=== PATIENT | male | born 1950 | race Caucasian/White ===

== ENCOUNTER 2019-09-09 06:43 | Outpatient (CLI) | payer OTHER, SELFPAY ==
[2019-09-09 07:33] LABS: Basophils Absolute Auto 0.1 K/mm3 (0.0-0.1); Basophils Percent Auto 1.3 % (0.2-1.2); Eosinophils Absolute Auto 0.2 K/mm3 (0-0.3); Eosinophils Percent Auto 2.8 % (0-4.4); Hematocrit 43.6 % (42.0-52.0); Hemoglobin 14.2 g/dL (14.0-18.0); Immature Granulocyte Absolute 0.03 K/mm3 (0.00-0.031); Immature Granulocyte Percent A 0.4 % (0-0.5); Lymphocytes Absolute Auto 0.68 K/mm3 (0.9-3.2); Mean Corpuscular HGB Conc 32.6 g/dl (32-36); Mean Corpuscular Hemoglobin 32.1 pg (26-34); Mean Corpuscular Volume 98.4 fl (80-100); Monocytes Absolute Auto 0.7 K/mm3 (0.1-0.6); Monocytes Percent Auto 10.3 % (2.6-8.5); Neutrophils Absolute Auto 5.1 K/mm3 (1.3-6.7); Neutrophils Percent Auto 75.2 % (45.5-73.1); Platelet Count Result 371 k/mm3 (150-375); Red Blood Count 4.43 M/mm3 (4.6-6.20); Red Cell Distribution Width 14.7 % (11.5-14.5); White Blood Count 6.8 K/mm3 (4.5-10.0)
[2019-09-09 08:27] LABS: Alanine Aminotransferase 41 U/L (4-50); Albumin Level 3.9 g/dL (3.5-5.1); Alkaline Phosphatase 385 U/L (38-126); Aspartate Amino Transferase 58 U/L (17-59); Bilirubin,Total 1.1 mg/dL (0.2-1.3); Blood Urea Nitrogen 20 mg/dL (9-20); Carbon Dioxide 25 mmol/L (22-30); Chloride 104 mmol/L (98-107); Cholesterol 126 mg/dL (0-200); Estimated Glomerular Filt Rate > 60; Glucose 121 mg/dL (75-110); HDL Direct 53 mg/dL; Potassium 4.5 mmol/L (3.4-5.0); Sodium 140 mmol/L (137-145); Triglycerides 63 mg/dL (<150)
[2019-09-09 08:27] LABS: Creatinine Urine 166.5 mg/dL
[2019-09-09 08:31] LABS: MALB Creatinine Ratio 22.2 mg/g (0-30)
[2019-09-09 08:49] LABS: LDL Cholesterol Direct 50 mg/dL
[2019-09-09 09:04] LABS: Prostate Specific Antigen 0.7 ng/mL (< OR = 4.0)
[2019-09-09 15:11] LABS: Hemoglobin A1C 5.5 % (<5.7)
== END 2019-09-09 06:44 | disposition home or self-care (01) ==
PROVIDERS: PCP Internal Medicine; Visit Provider Internal Medicine
DX: Z12.5 Encounter for screening for malignant neoplasm of prostate (principal); E11.22 Type 2 diabetes mellitus with diabetic chronic kidney disease; I10 Essential (primary) hypertension
CPT/HCPCS: 36415; 80053; 80061; 82043; 83036; 84153; 84443; 85025; G0103

== ENCOUNTER 2019-09-17 08:52 | Outpatient (CLI) | payer OTHER, SELFPAY ==
--- NOTE | ~2019-09-17 | XR_ITS ---
EXAMINATION: XR chest 2V EXAM DATE: 09/17/2019 09:15 INDICATION: Wheezing and shortness of breath. TECHNIQUE: Frontal and lateral projections of the chest obtained and reviewed. Comparison is made to prior examination from 09/04/2018. FINDINGS: Mild cardiomegaly and pulmonary vascular congestion. There is indistinct reticulation than on prior study, could indicate mild pulmonary edema. Appearance is suspicious for mild CHF exacerbat ion. Again there is small to moderate right-sided pleural effusion, possibly with loculations, and ad jacent airspace disease not significantly changed, likely atelectasis. There is no pneumothorax suspe cted. There are mild bony degenerative changes. IMPRESSION: 1. Chronic small to moderate right pleural effusion, adjacent airspace disease probably atelectasis. 2. Possible mild CHF exacerbation? Reviewed, dictated and finalized at location B.
== END 2019-09-17 08:53 | disposition home or self-care (01) ==
PROVIDERS: PCP Internal Medicine; Visit Provider Internal Medicine
DX: J90 Pleural effusion, not elsewhere classified (principal); R06.02 Shortness of breath; R06.2 Wheezing
CPT/HCPCS: 71046

== ENCOUNTER 2019-09-22 06:35 | Outpatient (CLI) | payer OTHER, SELFPAY ==
--- NOTE | ~2019-09-22 | XR_ITS ---
XR chest 2V DATE: 09/22/2019 07:29 INDICATION: Heart failure. Recent wheezing, shortness of breath. TECHNIQUE: PA and lateral views COMPARISON: 09/17/2019 2 view chest FINDINGS: There is right lower lung infiltrate and/atelectasis and mild right pleural effusion. There is little interval change since 09/17/2019. Minimal atelectasis is suggested in the left lower lung z one. IMPRESSION: No significant change since 09/17/2019 Reviewed, dictated and finalized at location A.
[2019-09-22 08:04] LABS: Blood Urea Nitrogen 20 mg/dL (9-20); Carbon Dioxide 29 mmol/L (22-30); Chloride 103 mmol/L (98-107); Estimated Glomerular Filt Rate 60; Glucose 109 mg/dL (75-110); Potassium 4.2 mmol/L (3.4-5.0); Sodium 136 mmol/L (137-145)
== END 2019-09-22 06:36 | disposition home or self-care (01) ==
PROVIDERS: PCP Internal Medicine; Visit Provider Internal Medicine
DX: I50.9 Heart failure, unspecified (principal)
CPT/HCPCS: 36415; 71046; 80048

== ENCOUNTER 2019-11-07 08:20 | Outpatient (CLI) | payer OTHER, SELFPAY ==
--- NOTE | ~2019-11-07 | CT_ITS ---
EXAMINATION: CT lung screening DATE: 11/07/2019 08:57 INDICATION: Personal history of tobacco dependence. TECHNIQUE: Computed tomography (CT) of the chest was performed without intravenous contrast. The dose -length product was 302.13 mGy-cm. Automated exposure control and iterative reconstruction technique were employed. COMPARISON: CT dated 08/23/2018 FINDINGS: Stable chronic small right pleural effusion stable chronic masses right middle and lower lo bes consistent with rounded atelectasis. Cardiomegaly. Calcified left hilar lymph nodes and left lung nodules consistent with chronic granulomatous disease. Stable 7 mm left lower lobe nodule just above the diaphragm. There is cirrhosis of the liver. Large amount of ascites in the upper abdomen. There is emphysema. IMPRESSION: 1. Lung-RADS category 2: Benign appearance or behavior. Continue annual screening with noncontrast lo w-dose chest CT in 12 months. 2: Stable chronic right pleural effusion with rounded atelectasis right middle and lower lobe. 3: Cirrhosis with large amount of ascites in the upper abdomen. Reviewed, dictated and finalized at location A. IMPRESSION: 1. Lung-RADS category 2: Benign appearance or behavior. Continue annual screeni ng with noncontrast low-dose chest CT in 12 months. 2: Stable chronic right pleural effusion with rounded atelectasis right middle and lower lobe. 3: Cirrhosis with large amount of ascites in the upper abdomen.
== END 2019-11-07 08:21 | disposition home or self-care (01) ==
LOC: ANHIMG 08:25
PROVIDERS: PCP Internal Medicine; Visit Provider Nurse Practitioner Family
DX: Z12.2 Encounter for screening for malignant neoplasm of respiratory organs (principal); J90 Pleural effusion, not elsewhere classified; J98.11 Atelectasis; K74.60 Unspecified cirrhosis of liver; R18.8 Other ascites; Z87.891 Personal history of nicotine dependence
CPT/HCPCS: G0297

== ENCOUNTER 2019-11-20 06:47 | Outpatient (CLI) | payer OTHER, SELFPAY ==
[2019-11-20 07:29] LABS: Alanine Aminotransferase 28 U/L (4-50); Albumin Level 3.8 g/dL (3.5-5.1); Alkaline Phosphatase 287 U/L (38-126); Aspartate Amino Transferase 42 U/L (17-59); Bilirubin,Total 1.1 mg/dL (0.2-1.3); Blood Urea Nitrogen 34 mg/dL (9-20); Calcium 8.9 mg/dL (8.4-10.2); Carbon Dioxide 24 mmol/L (22-30); Chloride 107 mmol/L (98-107); Estimated Glomerular Filt Rate 47; Glucose 109 mg/dL (75-110); Potassium 4.8 mmol/L (3.4-5.0); Sodium 136 mmol/L (137-145)
== END 2019-11-20 06:48 | disposition home or self-care (01) ==
PROVIDERS: PCP Internal Medicine; Visit Provider Internal Medicine
DX: K70.31 Alcoholic cirrhosis of liver with ascites (principal); R74.8 Abnormal levels of other serum enzymes; E66.01 Morbid (severe) obesity due to excess calories; Z68.37 Body mass index [BMI] 37.0-37.9, adult
CPT/HCPCS: 36415; 80053; 86038

== ENCOUNTER 2019-12-11 06:37 | Outpatient (CLI) | payer OTHER, SELFPAY ==
[2019-12-11 07:38] LABS: Basophils Absolute Auto 0.1 K/mm3 (0.0-0.1); Basophils Percent Auto 1.3 % (0.2-1.2); Eosinophils Absolute Auto 0.3 K/mm3 (0-0.3); Eosinophils Percent Auto 3.7 % (0-4.4); Hematocrit 38.4 % (42.0-52.0); Hemoglobin 12.5 g/dL (14.0-18.0); Immature Granulocyte Absolute 0.03 K/mm3 (0.00-0.031); Immature Granulocyte Percent A 0.4 % (0-0.5); Lymphocytes Absolute Auto 0.61 K/mm3 (0.9-3.2); Lymphocytes Percent Auto 8.7 % (18.3-44.2); Mean Corpuscular HGB Conc 32.6 g/dl (32-36); Mean Corpuscular Hemoglobin 31.8 pg (26-34); Mean Corpuscular Volume 97.7 fl (80-100); Mean Platelet Volume 10.1 fl (7.4-10.4); Monocytes Absolute Auto 0.8 K/mm3 (0.1-0.6); Neutrophils Absolute Auto 5.2 K/mm3 (1.3-6.7); Neutrophils Percent Auto 74.9 % (45.5-73.1); Platelet Count Result 325 k/mm3 (150-375); Red Blood Count 3.93 M/mm3 (4.6-6.20); Red Cell Distribution Width 15.2 % (11.5-14.5)
[2019-12-11 07:52] LABS: Alanine Aminotransferase 27 U/L (4-50); Albumin Level 3.9 g/dL (3.5-5.1); Alkaline Phosphatase 300 U/L (38-126); Aspartate Amino Transferase 43 U/L (17-59); Bilirubin,Total 0.7 mg/dL (0.2-1.3); Blood Urea Nitrogen 40 mg/dL (9-20); Carbon Dioxide 22 mmol/L (22-30); Chloride 107 mmol/L (98-107); Estimated Glomerular Filt Rate 40; Glucose 112 mg/dL (75-110); Potassium 4.9 mmol/L (3.4-5.0); Sodium 136 mmol/L (137-145)
[2019-12-11 08:06] LABS: INR 1.1; Prothrombin Time 13.8 Seconds (11.1-14.7)
[2019-12-11 09:03] LABS: Hepatitis C Virus Antibody Negative (Negative)
[2019-12-14 10:44] LABS: Actin Antibody (IgG) 23 U (<20)
== END 2019-12-11 06:38 | disposition home or self-care (01) ==
PROVIDERS: PCP Internal Medicine
DX: R74.8 Abnormal levels of other serum enzymes (principal); E66.01 Morbid (severe) obesity due to excess calories; Z68.37 Body mass index [BMI] 37.0-37.9, adult; K70.31 Alcoholic cirrhosis of liver with ascites
CPT/HCPCS: 36415; 80053; 82103; 83516; 85025; 85610; 86038; 86803

== ENCOUNTER 2020-03-02 08:07 | Outpatient (CLI) | payer OTHER, SELFPAY ==
--- NOTE | 2020-03-02 08:09 | ECG_ITS ---
Measurements Intervals [place] Rate: 86 P: MS: 0 QRS: 53 QRSD: 151 T: 0 QT: 394 QTc: 473 Interpretive Statements ATRIAL FIBRILLATION RIGHT BUNDLE BRANCH BLOCK BASELINE ARTIFACT- I, II, III, AVR, AVL, AVF, V5-V6 ABNORMAL ECG Electronically Signed On 03-02-2020 13:22:46 CDT by Matt Griggs D.O.
[2020-03-02 08:56] LABS: Anion Gap 10 mmol/L (8-16); Blood Urea Nitrogen 22 mg/dL (9-20); Carbon Dioxide 27 mmol/L (22-30); Chloride 102 mmol/L (98-107); Estimated Glomerular Filt Rate 55; Glucose 145 mg/dL (75-110); Potassium 4.4 mmol/L (3.4-5.0); Sodium 139 mmol/L (137-145)
[2020-03-02 09:04] LABS: INR 1.3; Prothrombin Time 15.4 Seconds (11.1-14.7)
== END 2020-03-02 08:08 | disposition home or self-care (01) ==
LOC: ANHSURGERY 08:09
PROVIDERS: Anesthesiology; PCP Internal Medicine; Visit Provider Urology
DX: N43.40 Spermatocele of epididymis, unspecified (principal); E11.22 Type 2 diabetes mellitus with diabetic chronic kidney disease; K74.60 Unspecified cirrhosis of liver; I45.10 Unspecified right bundle-branch block; R94.31 Abnormal electrocardiogram [ECG] [EKG]
CPT/HCPCS: 36415; 80048; 85610; 85730; 87086; 87088; 93005

== ENCOUNTER 2020-03-08 01:10 | Outpatient (CLI) | payer OTHER, SELFPAY ==
[2020-03-08 16:16] LABS: SARS-CoV-2 RNA PCR Negative
== END 2020-03-08 01:11 | disposition home or self-care (01) ==
LOC: ANHCOVIDDT 01:10
PROVIDERS: PCP Internal Medicine; Visit Provider Urology
DX: Z01.812 Encounter for preprocedural laboratory examination (principal); Z20.828 Contact with and (suspected) exposure to other viral communicable diseases
CPT/HCPCS: 87635; C9803; U0003

== ENCOUNTER 2020-03-10 00:25 | Day surgery (SDC) | payer OTHER, SELFPAY ==
[2020-02-25 13:57] VITALS: BMI 39.2
[2020-03-10] VITALS (7 sets, daily range): BP systolic 121–148; BP diastolic 72–94; PULSE 66–91; RESP 14–26; TEMP 36.4–36.9; O2SAT 94–99
[2020-03-10] MEDS: LACTATED RINGERS 1,000 ML 30 ML IV CONT ×2 (10:07→13:34)
[2020-03-10] MEDS: ACETAMINOPHEN 500 MG TABLET 1000 MG PO (10:07)
--- NOTE | 2020-03-10 10:14 | WPDANESEPPF ---
Anes - Initial Pre Proc Eval Procedure: Operation Date: 03/10/20 12:00 Proposed Procedures p Bilateral Hydrocelectomy - Madhuri Ortiz MD s Left Spermatocelectomy - Madhuri Ortiz MD Date/Time: 03/10/20 10:14 Surgeon: Madhrui Ortiz MD Pre Op Diagnosis: Hydrocele and Spermatocele Patient Data Age: 70 Gender: M Height: 6 ft 2 in Weight: 138.6 kg Allergies Allergy/AdvReac Type Severity Reaction Status Date / Time No Known Allergies Allergy Verified 02/25/20 13:54 Home Medications Medication Instructions Recorded Confirmed Type lisinopril 20 mg tablet 10 mg PO DAILY #90 tablet 08/19/19 03/10/20 Rx furosemide 40 mg tablet 40 mg PO QAM #90 tablet 10/06/19 03/10/20 Rx apixaban 5 mg tablet 5 mg PO BID #60 tablet 12/08/19 03/10/20 Rx carvedilol 3.125 mg tablet 3.125 mg PO Q12H #60 tablet 02/02/20 03/10/20 Rx umeclidinium-vilanterol [Anoro 1 inhalation INHALATION DAILY PRN 02/25/20 03/10/20 History Ellipta] metformin 1,000 mg tablet 1,000 mg PO BID #180 tablet 03/01/20 03/10/20 Rx Patient hx anesthesia problems: none Family hx anesthesia problems: none PMFSH Past Medical History Medical History (Updated 03/10/20 @ 10:11 by Duke Lopez MD) Atrial fibrillation Chronic obstructive pulmonary disease Essential hypertension Hepatic cirrhosis TROY (obstructive sleep apnea) Type 2 diabetes mellitus with chronic kidney disease, without long-term current use of insulin Surgical History Surgical History History of hernia repair Social History Social History (Updated 09/22/19 @ 13:52 by Ashanti Bills CMA) Years smoked: 54 Smoking status: Current every day smoker Tobacco type: cigarettes Second hand tobacco smoke exposure: Yes Additional smoking assessment comments: STATES DOWN TO 1/2PK/DAY FROM 1 1/2PK/DAY Alcohol intake: current Alcohol use details: UNALBLE TO GIVEN DRINKS/WEEK - STATES MODERATE INTAKE Substance use: never Living arrangements: alone Spiritual care concerns: No Anes - Eval Final PreProcedure Day of Procedure 03/10/20 10:14 Patient weight: morbidly obese Heart: irregular rhythm Lungs: clear to auscultation Airway: Mallampati scale class II Neurological: alert and oriented Last oral intake: >/= 8 hours ASA classification: IV Emergent: no Anesthetic plan: proceed Anesthesia type and monitoring: general LMA and standard monitoring Informed Consent: The patient's anesthetic plan and its attendant risks and benefits were discussed with the patient/family/POA. Questions were solicited and answers provided to the satisfaction of the patient/family/POA.
[2020-03-10 10:16] LABS: Glucose Point of Care 107 (65-105)
[2020-03-10 10:44] LABS: INR 1.1; Prothrombin Time 13.7 Seconds (11.1-14.7)
[2020-03-10 10:45] LABS: Partial Thromboplastin Time 33.4 SECONDS (22.3-36.8)
--- NOTE | 2020-03-10 12:04 | WPDHPUPDATE1 ---
History and Physical Update Update Date/Time: 03/10/20 12:04 History and Physical has been reviewed, including an updated exam of the patient. There are NO changes in the patient's condition. Risks, benefits, and alternatives have been discussed and questions answered. Patient agrees to proceed with procedure.
[2020-03-10] MEDS: ceFAZolin 3 GM/D5W 100 ML 100 ML IVPB (12:09)
--- NOTE | 2020-03-10 13:33 | P.OP_ITS ---
Procedure Note - Detailed Date of procedure: 03/10/20 Pre-op diagnosis: Hydrocele and Spermatocele Procedure performed: bilateral hydrocelectomy and left spermatocelectomy Description of procedure: informed consent was obtained. Patient taken the operating. He is given preoperative IV antibiotics. His anesthesia. He was shaved his prepped draped normal sterile fashion in supine position. A 5cm midline scrotal raphe incision was made. We dissected down into the right hemiscrotum. We identified a large right hydrocele. the dartos layer was opened. we then carefully dissected the anterior portion of the hydrocele away from surrounding structures. We then opened the hydrocele sac with return of [id number] of straw-colored fluid. At this point we inspected the testicle and it was normal in appearance. We then removed a portion of the hy drocele sac and was sent to specimen. We then over sewed the edges of the hydrocele with 2 0 Vicryl suture, taking great care not to injure the spermatic cord or testicle. The right testicle was then returned to its orthotopic position. We then focused on the left side. We again delivered the hydrocele into the midline incision. Tunica vaginalis was opened, there was [id number] of hydrocele fluid. We identified a normal-appearing testicle with a 3cm epididymal cyst. We then opened the tunica over the epididymal cyst it was dissected free from surrounding structures. we then e xcised the spermatocele and the infundibulum was oversewn with a 2 0 Vicryl suture. We then closed the potential space over the head of the epididymis. At this point we then performed a hydrocelectomy in similar fashion as the contralateral side. Neither testicle was mobile after hydrocelectomy and therefore we elected not to perform an orchiopexy on either side. At this point both testicles were returned to their orthotopic position. There was good hemostasis. Dartos was closed with 2 0 Vicryl suture. Deep dermal layer was closed with 3 O Vicryl suture. The skin was closed with 3 0 chromic horizontal mattress. A dressing was placed, scrotal support was applied patient. the patient was taken to PACU in stable condition. Anesthesia: GLMA Surgeon: Madhuri Ortiz MD Estimated blood loss (mL): 10 Pathology: yes Complications: No immediate complications Condition: stable Disposition: PACU
[2020-03-10 13:49] LABS: Glucose Point of Care 93 (65-105)
== END 2020-03-10 15:08 | disposition home or self-care (01) ==
PROVIDERS: PCP Internal Medicine; Visit Provider Urology
PROC: (CPT 55040; principal; 2020-03-10 12:00)
PROC: (CPT 54840; 2020-03-10 12:00)
DX: N43.3 Hydrocele, unspecified (principal); N43.41 Spermatocele of epididymis, single; I48.91 Unspecified atrial fibrillation; J44.9 Chronic obstructive pulmonary disease, unspecified; I12.9 Hypertensive chronic kidney disease with stage 1 through stage 4 chronic kidney disease, or unspecified chronic kidney disease; E11.22 Type 2 diabetes mellitus with diabetic chronic kidney disease; N18.9 Chronic kidney disease, unspecified; G47.33 Obstructive sleep apnea (adult) (pediatric); K74.60 Unspecified cirrhosis of liver; Z79.01 Long term (current) use of anticoagulants; Z79.84 Long term (current) use of oral hypoglycemic drugs; F17.210 Nicotine dependence, cigarettes, uncomplicated; E66.01 Morbid (severe) obesity due to excess calories; Z68.39 Body mass index [BMI] 39.0-39.9, adult
CPT/HCPCS: 55041; 54840; 36415; 85610; 85730; 88302; 88304; A9270; J0690; J2405; J2704; J3010; J7120

== ENCOUNTER 2020-04-01 06:34 | Outpatient (CLI) | payer OTHER, SELFPAY ==
[2020-04-01 07:36] LABS: Hemoglobin A1C 5.3 % (<5.7)
[2020-04-01 07:47] LABS: Creatinine Urine 135.1 mg/dL
[2020-04-01 07:51] LABS: MALB Creatinine Ratio 11.6 mg/g (0-30); Microalbumin Urine Random 15.7 mg/L (0-16.7)
== END 2020-04-01 06:35 | disposition home or self-care (01) ==
LOC: ANHLAB 06:36
PROVIDERS: PCP Internal Medicine; Visit Provider Internal Medicine
DX: R73.01 Impaired fasting glucose (principal); R79.89 Other specified abnormal findings of blood chemistry
CPT/HCPCS: 36415; 82043; 83036

== ENCOUNTER 2020-04-07 06:35 | Outpatient (CLI) | payer OTHER, SELFPAY ==
[2020-04-07 07:23] LABS: Basophils Absolute Auto 0.1 K/mm3 (0.0-0.1); Basophils Percent Auto 1.8 % (0.2-1.2); Eosinophils Absolute Auto 0.2 K/mm3 (0-0.3); Eosinophils Percent Auto 3.4 % (0-4.4); Hematocrit 37.3 % (42.0-52.0); Hemoglobin 12.6 g/dL (14.0-18.0); Immature Granulocyte Absolute 0.02 K/mm3 (0.00-0.031); Immature Granulocyte Percent A 0.3 % (0-0.5); Lymphocytes Absolute Auto 0.64 K/mm3 (0.9-3.2); Lymphocytes Percent Auto 10.5 % (18.3-44.2); Mean Corpuscular HGB Conc 33.8 g/dl (32-36); Mean Corpuscular Hemoglobin 31.2 pg (26-34); Mean Corpuscular Volume 92.3 fl (80-100); Mean Platelet Volume 9.5 fl (7.4-10.4); Monocytes Absolute Auto 0.6 K/mm3 (0.1-0.6); Monocytes Percent Auto 10.3 % (2.6-8.5); Neutrophils Absolute Auto 4.5 K/mm3 (1.3-6.7); Neutrophils Percent Auto 73.7 % (45.5-73.1); Platelet Count Result 384 k/mm3 (150-375); Red Blood Count 4.04 M/mm3 (4.6-6.20); Red Cell Distribution Width 15.2 % (11.5-14.5); White Blood Count 6.1 K/mm3 (4.5-10.0)
[2020-04-07 07:36] LABS: Alanine Aminotransferase 21 U/L (4-50); Albumin Level 3.8 g/dL (3.5-5.1); Alkaline Phosphatase 353 U/L (38-126); Anion Gap 7 mmol/L (8-16); Aspartate Amino Transferase 41 U/L (17-59); Bilirubin,Total 0.7 mg/dL (0.2-1.3); Blood Urea Nitrogen 21 mg/dL (9-20); Calcium 8.9 mg/dL (8.4-10.2); Carbon Dioxide 29 mmol/L (22-30); Chloride 102 mmol/L (98-107); Estimated Glomerular Filt Rate 50; Glucose 110 mg/dL (75-110); Potassium 4.8 mmol/L (3.4-5.0); Sodium 138 mmol/L (137-145)
[2020-04-07 07:44] LABS: INR 1.1; Prothrombin Time 13.9 Seconds (11.1-14.7)
== END 2020-04-07 06:36 | disposition home or self-care (01) ==
PROVIDERS: PCP Internal Medicine; Visit Provider Internal Medicine
DX: R73.01 Impaired fasting glucose (principal); I10 Essential (primary) hypertension; R79.89 Other specified abnormal findings of blood chemistry; K70.31 Alcoholic cirrhosis of liver with ascites
CPT/HCPCS: 36415; 80053; 84443; 85025; 85610

== ENCOUNTER 2020-04-08 06:38 | Outpatient (CLI) | payer OTHER, SELFPAY ==
[2020-04-08 09:50] LABS: Free T4 Free Thyroxine 1.01 ng/mL (0.78-2.19)
== END 2020-04-08 06:39 | disposition home or self-care (01) ==
PROVIDERS: PCP Internal Medicine; Visit Provider Internal Medicine
DX: E03.9 Hypothyroidism, unspecified (principal)
CPT/HCPCS: 36415; 84439; 84443

== ENCOUNTER 2020-04-13 08:33 | Outpatient (CLI) | payer OTHER, SELFPAY ==
--- NOTE | ~2020-04-13 | US_ITS ---
EXAMINATION: US paracentesis abd w/image DATE: 04/13/2020 10:38 INDICATION: Alcoholic cirrhosis of the liver with ascites TECHNIQUE: The procedure and its risks and benefits were discussed with the patient. Potential risks discussed included bleeding and infection. The skin was prepped and draped in sterile fashion. 1% lid ocaine was used for local anesthesia. Under ultrasound guidance, a 5 Fr catheter with trochar was adv anced into the ascites in the left lower quadrant. Fluid was aspirated into vacuum bottles. The tushar ter was removed, and a dressing was applied. There were no immediate complications. FINDINGS: Ultrasound images demonstrate ascites and the catheter within the fluid. IMPRESSION: 1. Successful ultrasound-guided paracentesis yielding 5000 mL of clear yellow fluid. Reviewed, dictated and finalized at location A.
[2020-04-13 09:10] LABS: Basophils Absolute Auto 0.1 K/mm3 (0.0-0.1); Basophils Percent Auto 1.5 % (0.2-1.2); Eosinophils Absolute Auto 0.1 K/mm3 (0-0.3); Eosinophils Percent Auto 2.4 % (0-4.4); Hematocrit 41.2 % (42.0-52.0); Hemoglobin 13.6 g/dL (14.0-18.0); Immature Granulocyte Absolute 0.02 K/mm3 (0.00-0.031); Immature Granulocyte Percent A 0.3 % (0-0.5); Lymphocytes Absolute Auto 0.64 K/mm3 (0.9-3.2); Lymphocytes Percent Auto 10.9 % (18.3-44.2); Mean Corpuscular Hemoglobin 30.8 pg (26-34); Mean Corpuscular Volume 93.2 fl (80-100); Mean Platelet Volume 9.3 fl (7.4-10.4); Monocytes Absolute Auto 0.6 K/mm3 (0.1-0.6); Monocytes Percent Auto 10.4 % (2.6-8.5); Neutrophils Absolute Auto 4.4 K/mm3 (1.3-6.7); Neutrophils Percent Auto 74.5 % (45.5-73.1); Platelet Count Result 388 k/mm3 (150-375); Red Blood Count 4.42 M/mm3 (4.6-6.20); Red Cell Distribution Width 15.4 % (11.5-14.5); White Blood Count 5.9 K/mm3 (4.5-10.0)
[2020-04-13 09:20] LABS: INR 1.1; Prothrombin Time 13.4 Seconds (11.1-14.7)
== END 2020-04-13 08:34 | disposition home or self-care (01) ==
PROVIDERS: Radiology Diagnostic Radiology; PCP Internal Medicine; Visit Provider Internal Medicine
DX: K70.31 Alcoholic cirrhosis of liver with ascites (principal)
CPT/HCPCS: 36415; 49083; 85025; 85610

== ENCOUNTER 2020-04-29 06:33 | Outpatient (CLI) | payer OTHER, SELFPAY ==
[2020-04-29 07:40] LABS: Hematocrit 39.1 % (42.0-52.0); Hemoglobin 13.1 g/dL (14.0-18.0); Mean Corpuscular HGB Conc 33.5 g/dl (32-36); Mean Corpuscular Hemoglobin 30.4 pg (26-34); Mean Corpuscular Volume 90.7 fl (80-100); Mean Platelet Volume 9.1 fl (7.4-10.4); Platelet Count Result 385 k/mm3 (150-375); Red Blood Count 4.31 M/mm3 (4.6-6.20); Red Cell Distribution Width 15.9 % (11.5-14.5); White Blood Count 5.9 K/mm3 (4.5-10.0)
[2020-04-29 07:51] LABS: Alanine Aminotransferase 42 U/L (4-50); Albumin Level 3.8 g/dL (3.5-5.1); Alkaline Phosphatase 390 U/L (38-126); Amylase 70 U/L (30-110); Aspartate Amino Transferase 62 U/L (17-59); Bilirubin Indirect 0.7 mg/dL (0-1.1); Bilirubin,Total 0.7 mg/dL (0.2-1.3); Estimated Glomerular Filt Rate 55; Lipase 90 U/L (23-300)
[2020-04-29 07:53] LABS: Ammonia < 9 umol/L (9-30)
[2020-04-29 08:26] LABS: Transferrin 245 mg/dL (206-381)
[2020-04-29 09:22] LABS: Iron 52 ug/dL (49-181)
[2020-04-29 09:33] LABS: Percent Iron Saturation 15 % (20-50)
== END 2020-04-29 06:34 | disposition home or self-care (01) ==
PROVIDERS: PCP Internal Medicine; Referring Provider Internal Medicine; Visit Provider Internal Medicine Gastroenterology
DX: K74.69 Other cirrhosis of liver (principal); K86.2 Cyst of pancreas
CPT/HCPCS: 36415; 82040; 82140; 82150; 82247; 82248; 82565; 82728; 83540; 83550; 83690; 84075; 84450; 84460; 84466; 85027

== ENCOUNTER 2020-07-13 06:37 | Outpatient (CLI) | payer OTHER, SELFPAY ==
[2020-07-13 07:32] LABS: Basophils Absolute Auto 0.1 K/mm3 (0.0-0.1); Basophils Percent Auto 1.8 % (0.2-1.2); Eosinophils Absolute Auto 0.2 K/mm3 (0-0.3); Eosinophils Percent Auto 3.3 % (0-4.4); Hematocrit 39.2 % (42.0-52.0); Hemoglobin 12.7 g/dL (14.0-18.0); Immature Granulocyte Absolute 0.02 K/mm3 (0.00-0.031); Immature Granulocyte Percent A 0.3 % (0-0.5); Lymphocytes Absolute Auto 0.73 K/mm3 (0.9-3.2); Mean Corpuscular HGB Conc 32.4 g/dl (32-36); Mean Corpuscular Hemoglobin 30.2 pg (26-34); Mean Corpuscular Volume 93.1 fl (80-100); Mean Platelet Volume 9.6 fl (7.4-10.4); Monocytes Absolute Auto 0.6 K/mm3 (0.1-0.6); Monocytes Percent Auto 10.5 % (2.6-8.5); Neutrophils Absolute Auto 4.4 K/mm3 (1.3-6.7); Neutrophils Percent Auto 72.1 % (45.5-73.1); Platelet Count Result 382 k/mm3 (150-375); Red Blood Count 4.21 M/mm3 (4.6-6.20); Red Cell Distribution Width 15.2 % (11.5-14.5); White Blood Count 6.1 K/mm3 (4.5-10.0)
[2020-07-13 07:50] LABS: Hemoglobin A1C 5.4 % (<5.7)
[2020-07-13 07:52] LABS: Alanine Aminotransferase 28 U/L (4-50); Albumin Level 3.7 g/dL (3.5-5.1); Alkaline Phosphatase 365 U/L (38-126); Anion Gap 5 mmol/L (8-16); Aspartate Amino Transferase 45 U/L (17-59); Bilirubin,Total 0.8 mg/dL (0.2-1.3); Blood Urea Nitrogen 31 mg/dL (9-20); Calcium 9.1 mg/dL (8.4-10.2); Carbon Dioxide 29 mmol/L (22-30); Chloride 102 mmol/L (98-107); Estimated Glomerular Filt Rate 46; Glucose 105 mg/dL (75-110); Potassium 4.7 mmol/L (3.4-5.0); Sodium 136 mmol/L (137-145)
[2020-07-13 08:06] LABS: Creatinine Urine 117.5 mg/dL
[2020-07-13 08:10] LABS: MALB Creatinine Ratio 13.8 mg/g (0-30); Microalbumin Urine Random 16.2 mg/L (0-16.7)
== END 2020-07-13 06:38 | disposition home or self-care (01) ==
PROVIDERS: PCP Internal Medicine; Visit Provider Internal Medicine
DX: E11.22 Type 2 diabetes mellitus with diabetic chronic kidney disease (principal); I10 Essential (primary) hypertension; I27.21 Secondary pulmonary arterial hypertension; I50.32 Chronic diastolic (congestive) heart failure
CPT/HCPCS: 36415; 80053; 82043; 83036; 84443; 85025

== ENCOUNTER 2020-09-27 13:13 | Outpatient (CLI) | payer OTHER, SELFPAY ==
--- NOTE | 2020-09-27 13:25 | ECHO_ITS ---
Patient Info Name: Julian Shell Age: 70 years : 1950 Gender: Male Ht: 74 in Wt: 308 lbs BSA: 2.75 m2 HR: 75 bpm BP: 123 / 68 mmHg Technical Quality: Good Exam Date: 09/27/2020 1:59 PM Exam Location: [facility] Patient Status: Outpatient Admit Date: 09/27/2020 Staff Ordering Physician: Matt Griggs DO Plan Checker: Irma Mantilla RDCS Attending Provider: Matt Griggs DO Referring Physician: Anson SMALLWOOD; Exam Type: CA echo doppler color flow Study Info Indications I48.20 - CHRONIC ATRIAL FIBRILLATION, UNSPECIFIED Complete two-dimensional, color flow and Doppler transthoracic echocardiogram is performed. Summary 1. Complete two-dimensional, color flow and Doppler transthoracic echocardiogram is performed. 2. Left ventricular chamber dimension is normal. 3. Left ventricular systolic function is normal, estimated at 55-60%. 4. There is mildly increased left ventricular wall thickness. 5. Left ventricular septal wall motion is abnormal with septal motion related to bundle branch block. 6. The left ventricular diastolic function is abnormal. 7. E/e' 11 is mildly elevated. 8. Right ventricular systolic function is significantly reduced and with abnormal TAPSE at 0.8 cm. 9. Left atrial chamber dimension is severely enlarged. 10. Right atrial chamber dimension is severely enlarged. 11. There is moderate aortic valve sclerosis. 12. The mitral valve has moderately calcified annulus. 13. There is mild mitral valve regurgitation. 14. There is moderate tricuspid valve regurgitation. 15. Moderate pulmonary hypertension, estimated pulmonary arterial systolic pressure is 56 mmHg. 16. Significant pleural effusions bilaterally with echogenic material suggestive of chronicity. Left Ventricle E/e' 11 is mildly elevated. Left ventricular chamber dimension is normal. Left ventricular systolic function is normal, estimated at 55-60%. There is mildly increased left ventricular wall thickness. Left ventricular septal wall motion is abnormal with septal motion related to bundle branch block. The left ventricular diastolic function is abnormal. Right Ventricle Right ventricular systolic function is significantly reduced and with abnormal TAPSE at 0.8 cm. Right ventricular chamber dimension is mildly enlarged. Left Atria Left atrial chamber dimension is severely enlarged. Right Atria Right atrial chamber dimension is severely enlarged. Aortic Valve The aortic valve is trileaflet. There is moderate aortic valve sclerosis. There is no aortic valve stenosis. There is no aortic valve regurgitation. Pulmonic Valve There is no pulmonic regurgitation. Mitral Valve The mitral valve has moderately calcified annulus. There is no mitral valve stenosis. There is mild mitral valve regurgitation. Tricuspid Valve There is moderate tricuspid valve regurgitation. Moderate pulmonary hypertension, estimated pulmonary arterial systolic pressure is 56 mmHg. Pericardium/Pleural Significant pleural effusions bilaterally with echogenic material suggestive of chronicity. There is no pericardial effusion. Inferior Vena Cava Normal inferior vena cava with >50% collapse upon inspiration consistent with normal right atrial pressure, 5 mmHg. Aorta The aortic root size at the sinus of Valsalva is normal. Left Ventricular Outflow Tract Name Value
== END 2020-09-27 13:14 | disposition home or self-care (01) ==
PROVIDERS: PCP Internal Medicine; Visit Provider Internal Medicine Cardiovascular Disease
DX: I48.20 Chronic atrial fibrillation, unspecified (principal); I08.3 Combined rheumatic disorders of mitral, aortic and tricuspid valves
CPT/HCPCS: 93306

== ENCOUNTER 2020-09-28 11:32 | Outpatient (CLI) | payer OTHER, SELFPAY ==
--- NOTE | ~2020-09-28 | US_ITS ---
EXAMINATION: US paracentesis abd w/image DATE: 09/28/2020 14:01 INDICATION: Ascites. TECHNIQUE: The procedure and its risks and benefits were discussed with the patient. Potential risks discussed included bleeding and infection. The skin was prepped and draped in sterile fashion. 1% lid ocaine was used for local anesthesia. Under ultrasound guidance, a 5 Fr catheter with trochar was adv anced into the ascites in the left lower quadrant. Fluid was aspirated into vacuum bottles. The tushar ter was removed, and a dressing was applied. There were no immediate complications. FINDINGS: Ultrasound images demonstrate ascites and the catheter within the fluid. IMPRESSION: 1. Successful ultrasound-guided paracentesis yielding 5000 mL of dark yellow-brown fluid. Reviewed, dictated and finalized at location A. IMPRESSION: 1. Successful ultrasound-guided paracentesis yielding 5000 mL of dark yellow-b rown fluid.
[2020-09-28 12:03] LABS: Mean Platelet Volume 9.1 fl (7.4-10.4); Platelet Count Result 365 k/mm3 (150-375)
[2020-09-28 12:20] LABS: INR 1.1; Prothrombin Time 14.3 Seconds (11.1-14.7)
== END 2020-09-28 11:33 | disposition home or self-care (01) ==
PROVIDERS: PCP Internal Medicine; Visit Provider Internal Medicine Gastroenterology
DX: K74.60 Unspecified cirrhosis of liver (principal); R18.8 Other ascites
CPT/HCPCS: 36415; 49083; 85049; 85610

== ENCOUNTER 2020-10-08 06:39 | Outpatient (CLI) | payer OTHER, SELFPAY ==
[2020-10-08 07:50] LABS: Creatinine Urine 65.5 mg/dL; Sodium Urine Random 86 meq/L; Total Protein Urine Random 13 mg/dL
[2020-10-08 07:50] LABS: Albumin Level 3.6 g/dL (3.5-5.1); Anion Gap 4 mmol/L (8-16); Blood Urea Nitrogen 35 mg/dL (9-20); Calcium 8.6 mg/dL (8.4-10.2); Carbon Dioxide 29 mmol/L (22-30); Chloride 104 mmol/L (98-107); Estimated Glomerular Filt Rate 46; Glucose 110 mg/dL (75-110); Phosphorus 3.8 mg/dL (2.5-4.5); Sodium 137 mmol/L (137-145)
[2020-10-08 07:55] LABS: Complement C3 111 mg/dL (88-165)
[2020-10-08 11:01] LABS: Eosinophil Urine Rare % (None Seen)
[2020-10-11 02:56] LABS: Albumin 3.3 g/dL (3.8-4.8); Alpha 1 Globulin 0.3 g/dL (0.2-0.3); Alpha 2 Globulin 0.7 g/dL (0.5-0.9); Beta 1 Globulin 0.5 g/dL (0.4-0.6); Gamma Globulin 2.4 g/dL (0.8-1.7); Protein, Total 7.8 g/dL (6.1-8.1)
[2020-10-13 13:44] LABS: Creatinine, Random Urine 64 mg/dL (20-320); Total Protein/Creatinine Ratio 344 mg/g creat (22-128)
[2020-10-14 03:14] LABS: Cryoglobulin, QL Negative (Negative)
[2020-10-17 02:41] LABS: Anti Glomerular Basement Memb <1.0 AI (<1.0)
[2020-10-18 23:00] LABS: ANCA Screen Negative (Negative)
== END 2020-10-08 06:40 | disposition home or self-care (01) ==
LOC: ANHLAB 06:53
PROVIDERS: PCP Internal Medicine; Visit Provider Internal Medicine Nephrology
DX: E11.29 Type 2 diabetes mellitus with other diabetic kidney complication (principal); I12.9 Hypertensive chronic kidney disease with stage 1 through stage 4 chronic kidney disease, or unspecified chronic kidney disease; N18.31 Chronic kidney disease, stage 3a; R80.8 Other proteinuria
CPT/HCPCS: 36415; 80069; 82570; 82595; 83520; 84155; 84156; 84165; 84166; 84300; 85999; 86021; 86038; 86160; 86225

== ENCOUNTER 2020-11-29 06:39 | Outpatient (CLI) | payer OTHER, SELFPAY ==
[2020-11-29 07:18] LABS: Basophils Absolute Auto 0.1 K/mm3 (0.0-0.1); Basophils Percent Auto 1.1 % (0.2-1.2); Eosinophils Absolute Auto 0.2 K/mm3 (0-0.3); Eosinophils Percent Auto 3.1 % (0-4.4); Hematocrit 41.9 % (42.0-52.0); Hemoglobin 13.8 g/dL (14.0-18.0); Immature Granulocyte Absolute 0.04 K/mm3 (0.00-0.031); Immature Granulocyte Percent A 0.5 % (0-0.5); Lymphocytes Absolute Auto 0.66 K/mm3 (0.9-3.2); Mean Corpuscular HGB Conc 32.9 g/dl (32-36); Mean Corpuscular Hemoglobin 30.1 pg (26-34); Mean Corpuscular Volume 91.3 fl (80-100); Mean Platelet Volume 9.2 fl (7.4-10.4); Monocytes Absolute Auto 0.8 K/mm3 (0.1-0.6); Monocytes Percent Auto 10.8 % (2.6-8.5); Neutrophils Absolute Auto 5.5 K/mm3 (1.3-6.7); Neutrophils Percent Auto 75.5 % (45.5-73.1); Platelet Count Result 393 k/mm3 (150-375); Red Blood Count 4.59 M/mm3 (4.6-6.20); Red Cell Distribution Width 16.6 % (11.5-14.5); White Blood Count 7.3 K/mm3 (4.5-10.0)
[2020-11-29 07:34] LABS: Alanine Aminotransferase 37 U/L (4-50); Albumin Level 3.2 g/dL (3.5-5.1); Alkaline Phosphatase 324 U/L (38-126); Anion Gap 2 mmol/L (8-16); Aspartate Amino Transferase 55 U/L (17-59); Bilirubin,Total 0.6 mg/dL (0.2-1.3); Blood Urea Nitrogen 41 mg/dL (9-20); Calcium 8.5 mg/dL (8.4-10.2); Carbon Dioxide 27 mmol/L (22-30); Chloride 105 mmol/L (98-107); Estimated Glomerular Filt Rate 46; Glucose 113 mg/dL (75-110); Sodium 134 mmol/L (137-145)
[2020-11-29 09:22] LABS: Free T4 Free Thyroxine 1.03 ng/mL (0.78-2.19)
== END 2020-11-29 06:40 | disposition home or self-care (01) ==
LOC: ANHLAB 06:41
PROVIDERS: PCP Internal Medicine; Visit Provider Internal Medicine
DX: R79.89 Other specified abnormal findings of blood chemistry (principal); I10 Essential (primary) hypertension; E11.22 Type 2 diabetes mellitus with diabetic chronic kidney disease; K70.31 Alcoholic cirrhosis of liver with ascites
CPT/HCPCS: 36415; 80053; 84439; 84443; 85025

== ENCOUNTER 2021-02-18 06:35 | Outpatient (CLI) | payer OTHER, SELFPAY ==
[2021-02-18 07:58] LABS: Albumin Level 3.1 g/dL (3.5-5.1); Anion Gap 4 mmol/L (8-16); Blood Urea Nitrogen 21 mg/dL (9-20); Calcium 8.3 mg/dL (8.4-10.2); Carbon Dioxide 27 mmol/L (22-30); Chloride 101 mmol/L (98-107); Estimated Glomerular Filt Rate > 60; Glucose 108 mg/dL (65-110); Phosphorus 3.4 mg/dL (2.5-4.5); Potassium 4.2 mmol/L (3.4-5.0); Sodium 132 mmol/L (137-145)
[2021-02-18 08:06] LABS: Parathyroid Intact 48.8 pg/mL (7.5-53.5)
[2021-02-18 10:02] LABS: Creatinine Urine 138.2 mg/dL; Total Protein Urine Random 9 mg/dL; Ur Ttl Prot Creatinine Ratio 0.07 mg/mg (0-0.20)
[2021-02-19 01:28] LABS: Vitamin D 25 Hydroxy < 12.8 ng/mL
== END 2021-02-18 06:36 | disposition home or self-care (01) ==
PROVIDERS: PCP Internal Medicine; Visit Provider Internal Medicine Nephrology
DX: E11.29 Type 2 diabetes mellitus with other diabetic kidney complication (principal); I12.9 Hypertensive chronic kidney disease with stage 1 through stage 4 chronic kidney disease, or unspecified chronic kidney disease; N18.31 Chronic kidney disease, stage 3a; R80.8 Other proteinuria; R53.83 Other fatigue
CPT/HCPCS: 36415; 80069; 82306; 82570; 83970; 84156

== ENCOUNTER 2021-03-02 06:56 | Outpatient (CLI) | payer OTHER, SELFPAY ==
--- NOTE | ~2021-03-02 | CT_ITS ---
EXAMINATION: CT lung screening DATE: 03/02/2021 07:20 INDICATION: Z87.891 - Personal history of nicotine dependence TECHNIQUE: Computed tomography (CT) of the chest was performed without intravenous contrast. Addition al 3D reconstructions utilizing coronal maximum intensity projection (MIP) were performed. Automated exposure control and iterative reconstruction technique were employed. The dose-length product was 25 5.47 mGy-cm. COMPARISON: 11/07/2019 FINDINGS: Interval increase in size of a chronic now small to moderate-sized right pleural effusion. Complete c ollapse of the right middle lobe and partial collapse of the right lower lobe with progression of per ipheral regions of round atelectasis with associated volume loss and architectural distortion of the bronchovascular structures. There is persistent discoid atelectasis along the intact . Aspect of the anterior right upper lobe and increasing dependent atelectasis in the posterior right upper lobe. No interval change since 01/03/2017 in a likely benign 6 mm nodule at the lateral basilar segment of the left lower lobe. No other pulmonary nodules identified in the aerated portions of the lungs. Overall there is persistent volume loss right hemithorax with rightward shift of the heart and mediastinum. C ardiomegaly with prominent biatrial enlargement. Aortic valve and mitral annular calcification. Thora cic aorta is normal in caliber with scattered atherosclerotic calcification. Calcified left hilar lym ph nodes consistent with old granulomatous disease. No pathologically enlarged thoracic lymphadenopat hy. Shrunken and nodular cirrhotic liver with large amount of ascites in the visualized upper abdomen . Multiple splenic calcifications consistent with old granulomatous disease. Chronic minimal anterior wedging of a few mid and lower thoracic vertebral bodies. IMPRESSION: 1. Lung-RADS category 2S: Benign appearance or behavior but with clinically significant non-lung canc er findings. Continue annual screening with noncontrast low-dose chest CT in 12 months. 2. Enlarging small to moderate sized right pleural effusion with right middle lobe collapse, partial right lower lobe collapse and additional increasing atelectasis in the right upper lobe. 3. Cirrhosis with large amount of ascites in the upper abdomen. 4. Cardiomegaly with prominent biatrial enlargement. Reviewed, dictated and finalized at location B. IMPRESSION: 1. Lung-RADS category 2S: Benign appearance or behavior but with clinically sig nificant non-lung cancer findings. Continue annual screening with noncontrast l ow-dose chest CT in 12 months. 2. Enlarging small to moderate sized right pleural effusion with right middle l obe collapse, partial right lower lobe collapse and additional increasing atele ctasis in the right upper lobe. 3. Cirrhosis with large amount of ascites in the upper abdomen. 4. Cardiomegaly with prominent biatrial enlargement.
== END 2021-03-02 06:57 | disposition home or self-care (01) ==
LOC: ANHIMG 06:56
PROVIDERS: PCP Internal Medicine; Visit Provider Nurse Practitioner Family
DX: Z12.2 Encounter for screening for malignant neoplasm of respiratory organs (principal); Z87.891 Personal history of nicotine dependence; J90 Pleural effusion, not elsewhere classified; I51.7 Cardiomegaly; K74.69 Other cirrhosis of liver
CPT/HCPCS: 71271

== ENCOUNTER 2021-06-18 06:37 | Outpatient (CLI) | payer OTHER, SELFPAY ==
[2021-06-18 07:05] LABS: Basophils Absolute Auto 0.1 K/mm3 (0.0-0.1); Basophils Percent Auto 1.3 % (0.2-1.2); Eosinophils Absolute Auto 0.3 K/mm3 (0-0.3); Hematocrit 39.7 % (42.0-52.0); Hemoglobin 13.4 g/dL (14.0-18.0); Immature Granulocyte Absolute 0.02 K/mm3 (0.00-0.031); Immature Granulocyte Percent A 0.3 % (0-0.5); Lymphocytes Absolute Auto 0.64 K/mm3 (0.9-3.2); Lymphocytes Percent Auto 9.2 % (18.3-44.2); Mean Corpuscular HGB Conc 33.8 g/dl (32-36); Mean Corpuscular Hemoglobin 32.3 pg (26-34); Mean Corpuscular Volume 95.7 fl (80-100); Mean Platelet Volume 9.4 fl (7.4-10.4); Monocytes Absolute Auto 0.7 K/mm3 (0.1-0.6); Monocytes Percent Auto 10.7 % (2.6-8.5); Neutrophils Absolute Auto 5.2 K/mm3 (1.3-6.7); Neutrophils Percent Auto 74.5 % (45.5-73.1); Platelet Count Result 337 k/mm3 (150-375); Red Blood Count 4.15 M/mm3 (4.6-6.20); Red Cell Distribution Width 15.4 % (11.5-14.5); White Blood Count 6.9 K/mm3 (4.5-10.0)
[2021-06-18 07:18] LABS: Alanine Aminotransferase 42 U/L (4-50); Albumin Level 3.7 g/dL (3.5-5.1); Alkaline Phosphatase 347 U/L (38-126); Anion Gap 7 mmol/L (8-16); Aspartate Amino Transferase 49 U/L (17-59); Bilirubin,Total 0.6 mg/dL (0.2-1.3); Blood Urea Nitrogen 38 mg/dL (9-20); Calcium 8.7 mg/dL (8.4-10.2); Carbon Dioxide 23 mmol/L (22-30); Chloride 103 mmol/L (98-107); Cholesterol 129 mg/dL (0-200); Estimated Glomerular Filt Rate 35; Glucose 125 mg/dL (65-110); HDL Direct 54 mg/dL; Potassium 4.8 mmol/L (3.4-5.0); Sodium 133 mmol/L (137-145); Triglycerides 56 mg/dL (<150)
[2021-06-18 07:26] LABS: Hemoglobin A1C 5.5 % (<5.7)
[2021-06-18 07:29] LABS: LDL Cholesterol Direct 54 mg/dL
[2021-06-18 07:34] LABS: Vitamin D 25 Hydroxy 24.2 ng/mL
[2021-06-18 07:38] LABS: MALB Creatinine Ratio 11.5 mg/g (0-30); Microalbumin Urine Random 13.9 mg/L (0-16.7)
[2021-06-18 07:48] LABS: Prostate Specific Antigen 1.2 ng/mL (< OR = 4.0)
== END 2021-06-18 06:38 | disposition home or self-care (01) ==
LOC: ANHLAB 06:39
PROVIDERS: PCP Internal Medicine; Visit Provider Internal Medicine
DX: R79.89 Other specified abnormal findings of blood chemistry (principal); E11.22 Type 2 diabetes mellitus with diabetic chronic kidney disease; J44.9 Chronic obstructive pulmonary disease, unspecified; E55.9 Vitamin D deficiency, unspecified; K70.31 Alcoholic cirrhosis of liver with ascites; Z12.5 Encounter for screening for malignant neoplasm of prostate; E78.2 Mixed hyperlipidemia; I12.9 Hypertensive chronic kidney disease with stage 1 through stage 4 chronic kidney disease, or unspecified chronic kidney disease; N18.32 Chronic kidney disease, stage 3b
CPT/HCPCS: 36415; 80053; 80061; 82043; 82306; 83036; 84153; 84443; 85025; G0103

== ENCOUNTER 2021-06-27 06:40 | Outpatient (CLI) | payer OTHER, SELFPAY ==
--- NOTE | ~2021-06-27 | XR_ITS ---
XR knee RT 3V 06/27/2021 07:28 Indication: Right knee pain Procedure: 3 views right knee Comparison: No prior studies for comparison. Findings: No fracture, subluxation or dislocation. Diffuse subcutaneous edema. No significant joint e ffusion. There are vascular calcifications present. Impression: 1: No acute bone or joint abnormality. Reviewed, dictated and finalized at location A. S PERFORMANCE ANALYST Impression: 1: No acute bone or joint abnormality.
[2021-06-27 07:39] LABS: Albumin Level 3.7 g/dL (3.5-5.1); Anion Gap 5 mmol/L (8-16); Blood Urea Nitrogen 31 mg/dL (9-20); Calcium 8.4 mg/dL (8.4-10.2); Carbon Dioxide 23 mmol/L (22-30); Chloride 105 mmol/L (98-107); Estimated Glomerular Filt Rate 46; Glucose 120 mg/dL (65-110); Phosphorus 3.6 mg/dL (2.5-4.5); Potassium 4.3 mmol/L (3.4-5.0); Sodium 133 mmol/L (137-145)
[2021-06-27 07:43] LABS: Creatinine Urine 147.2 mg/dL; Total Protein Urine Random 24 mg/dL; Ur Ttl Prot Creatinine Ratio 0.16 mg/mg (0-0.20)
[2021-06-30 14:00] LABS: Thyroid Stimulating Immunoglob <89 % baseline (<140)
[2021-06-30 22:46] LABS: Triiodothyronine T3 Free 2.6 pg/mL (2.3-4.2)
[2021-07-01 05:35] LABS: Thyroid Peroxidase Antibodies 196 IU/mL (<9)
== END 2021-06-27 06:41 | disposition home or self-care (01) ==
PROVIDERS: PCP Internal Medicine; Referring Provider Internal Medicine; Visit Provider Internal Medicine Nephrology
DX: M25.561 Pain in right knee (principal); E03.9 Hypothyroidism, unspecified; I12.9 Hypertensive chronic kidney disease with stage 1 through stage 4 chronic kidney disease, or unspecified chronic kidney disease; N18.2 Chronic kidney disease, stage 2 (mild); E11.29 Type 2 diabetes mellitus with other diabetic kidney complication; E55.9 Vitamin D deficiency, unspecified
CPT/HCPCS: 36415; 73562; 80069; 82570; 84156; 84439; 84443; 84445; 84481; 86376

== ENCOUNTER 2021-08-22 06:37 | Outpatient (CLI) | payer OTHER, SELFPAY ==
[2021-08-22 07:21] LABS: Anion Gap 6 mmol/L (8-16); Blood Urea Nitrogen 37 mg/dL (9-20); Calcium 8.6 mg/dL (8.4-10.2); Carbon Dioxide 26 mmol/L (22-30); Chloride 102 mmol/L (98-107); Estimated Glomerular Filt Rate 46; Glucose 124 mg/dL (65-110); Potassium 4.9 mmol/L (3.4-5.0); Sodium 134 mmol/L (137-145)
[2021-08-22 08:15] LABS: Free T4 Free Thyroxine 1.22 ng/mL (0.78-2.19)
== END 2021-08-22 06:38 | disposition home or self-care (01) ==
PROVIDERS: PCP Internal Medicine; Visit Provider Internal Medicine
DX: I50.32 Chronic diastolic (congestive) heart failure (principal); E03.9 Hypothyroidism, unspecified
CPT/HCPCS: 36415; 80048; 84439; 84443

== ENCOUNTER 2021-09-01 09:31 | Outpatient (RCR) | payer OTHER, SELFPAY ==
--- NOTE | 2021-09-01 12:00 | PTOPEVAL ---
PHYSICAL THERAPY EVALUATION AND PLAN OF CARE 09-01-21 Thank you for referring Julian Shell to [facility].? He is scheduled to be seen for therapy? 2 x/week for 6 weeks. Please review, sign, date and return this plan of care KARRIE. I agree with and certify that the following plan of care is medically necessary. 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 Respiratory History Hx Chronic Obstructive Pulmonary Disease Yes (COPD) Hx Sleep Apnea Yes: HAS CPAP, DOES NOT USE ON A REGULAR BASES Gastrointestinal History Hx Cirrhosis Yes: liver Hx Hernia Yes: UMBILICAL HERNIA 2019 Genitourinary History Hx Other Genitourinary Disorders Yes: BILATERAL HYDROCELE-surg removal of fluid from testicles Musculoskeletal History Hx Arthritis Yes: R knee DJD; R and L shoulder pain-dislocation R shoulder Hematological History Hx Hematological Disorders No Significant History Endocrine History Hx Diabetes Yes: monitor, no longer on meds HEENT History Hx Tonsillectomy Yes Integumentary History Hx Skin Disorders No Significant History Reproductive History Hx Reproductive Disorders No Significant History Psychosocial History Hx Psychiatric Disorders No Significant History Pain History History of Any Previous or Ongoing No Significant History Instance of Pain Anesthesia History Hx Anesthesia Reactions No Significant History Evaluation Information Problem Diagnosis B LE lymphedema Onset about year Prior Level of Function Activity Level (Last 3 Months) Occupation retired, 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
--- NOTE | 2021-11-10 15:18 | PCPTNOTE ---
PHYSICAL THERAPY DISCHARGE 11-10-21 Attending Provider: JOSE LUIS Fuentes Patient:Julian Shell Date of :1950 Raimundo has not returned for any further treatments since the initial evaluation on 09/01/2021, therefore he will be discharged at this time. The goals were not addressed. Thank you for referring Raimundo to [facility]. Please review, sign, date and return this discharge summary KARRIE. I have been updated about the patient's current status and I agree with discharge from the above service at this time. Referring Physician Date
== END 2021-11-11 10:38 | disposition home or self-care (01) ==
LOC: ANHPT 09:31
PROVIDERS: PCP Internal Medicine; Visit Provider Nurse Practitioner Family
DX: I89.0 Lymphedema, not elsewhere classified (principal); I50.32 Chronic diastolic (congestive) heart failure; K70.31 Alcoholic cirrhosis of liver with ascites; E11.22 Type 2 diabetes mellitus with diabetic chronic kidney disease
CPT/HCPCS: 97162

== ENCOUNTER 2021-10-24 06:43 | Outpatient (CLI) | payer OTHER, SELFPAY | END 2021-10-24 06:44 | disposition home or self-care (01) | LOC: ANHLAB 06:45 | PROVIDERS: PCP Internal Medicine; Visit Provider Internal Medicine | DX: E03.9 Hypothyroidism, unspecified (principal) | CPT/HCPCS: 36415; 84443 ==

== ENCOUNTER 2021-11-24 06:34 | Outpatient (CLI) | payer OTHER, SELFPAY ==
[2021-11-24 07:49] LABS: Albumin Level 3.5 g/dL (3.5-5.1); Anion Gap 6 mmol/L (8-16); Blood Urea Nitrogen 26 mg/dL (9-20); Calcium 8.4 mg/dL (8.4-10.2); Carbon Dioxide 29 mmol/L (22-30); Chloride 104 mmol/L (98-107); Estimated Glomerular Filt Rate 50; Glucose 124 mg/dL (65-110); Phosphorus 3.6 mg/dL (2.5-4.5); Potassium 4.3 mmol/L (3.4-5.0); Sodium 139 mmol/L (137-145)
[2021-11-24 07:59] LABS: Parathyroid Intact 56.6 pg/mL (7.5-53.5)
[2021-11-24 08:00] LABS: Creatinine Urine 138.9 mg/dL; Total Protein Urine Random 12 mg/dL; Ur Ttl Prot Creatinine Ratio 0.09 mg/mg (0-0.20)
[2021-11-24 13:18] LABS: Vitamin D 25 Hydroxy 24.4 ng/mL
== END 2021-11-24 06:35 | disposition home or self-care (01) ==
PROVIDERS: PCP Internal Medicine; Visit Provider Internal Medicine Nephrology
DX: I12.9 Hypertensive chronic kidney disease with stage 1 through stage 4 chronic kidney disease, or unspecified chronic kidney disease (principal); N18.31 Chronic kidney disease, stage 3a; E11.29 Type 2 diabetes mellitus with other diabetic kidney complication; R80.8 Other proteinuria; E55.9 Vitamin D deficiency, unspecified
CPT/HCPCS: 36415; 80069; 82306; 82570; 83970; 84156

== ENCOUNTER 2021-12-23 06:39 | Outpatient (CLI) | payer OTHER, SELFPAY ==
[2021-12-23 07:42] LABS: Alanine Aminotransferase 28 U/L (6-50); Albumin Level 3.4 g/dL (3.5-5.1); Alkaline Phosphatase 298 U/L (38-126); Anion Gap 2 mmol/L (8-16); Aspartate Amino Transferase 41 U/L (17-59); Bilirubin,Total 1.4 mg/dL (0.2-1.3); Blood Urea Nitrogen 24 mg/dL (9-20); Calcium 8.1 mg/dL (8.4-10.2); Carbon Dioxide 29 mmol/L (22-30); Chloride 103 mmol/L (98-107); Estimated Glomerular Filt Rate 55; Glucose 117 mg/dL (65-110); Potassium 3.8 mmol/L (3.4-5.0); Sodium 134 mmol/L (137-145)
[2021-12-23 08:14] LABS: Free T4 Free Thyroxine 1.54 ng/mL (0.78-2.19)
== END 2021-12-23 06:40 | disposition home or self-care (01) ==
PROVIDERS: PCP Internal Medicine; Visit Provider Internal Medicine
DX: K70.31 Alcoholic cirrhosis of liver with ascites (principal); N18.32 Chronic kidney disease, stage 3b; E03.9 Hypothyroidism, unspecified
CPT/HCPCS: 36415; 80053; 84439; 84443

== ENCOUNTER 2022-02-16 08:39 | Outpatient (CLI) | payer OTHER, SELFPAY ==
[2022-02-16 10:00] VITALS: PULSE 83; O2SAT 93
[2022-02-16 10:05] VITALS: PULSE 106; O2SAT 90
[2022-02-16 10:15] VITALS: PULSE 90; O2SAT 94
--- NOTE | 2022-02-16 10:23 | HOMEO2EVAL ---
Evaluation was performed at [facility] Home Oxygen Evaluation RC: Home Oxygen (O2) Evaluation Start: 02/16/22 10:20 Freq: Status: Active Protocol: RPE Activity Type Activity Date Activity User E-sign Co-sign Detail Recorded Client Recorded Date Recorded By Document 02/16/22 10:00 OFE [id number]_012 02/16/22 10:22 OFE Document 02/16/22 10:05 OFE [email or web address]_012 02/16/22 10:22 OFE Document 02/16/22 10:15 OFE [email or web address] 02/16/22 10:22 OFE 02/16/22 02/16/22 02/16/22 10:00 10:05 10:15 Home O2 Evaluation Test Phase Resting Exercise Resting Oxygen Delivery Room Air Room Air Room Air Pulse Oximetry (90-100 %) 93 90 94 Pulse Rate (60-100 beats/min) 83 106 H 90 Activity Tolerance Good Rating of Perceived Dyspnea (PD) +2 Mild, Some Difficulty, Noticeable to the Observer Home Oxygen Evaluation Comments NO HOME O2 NEEDED Treatment Charges O2 Evaluation - Outpatient
--- NOTE | 2022-02-16 10:23 | PCRCNOTE ---
FAXED HOME O2 EVAL TO OFFICE STAFF
--- NOTE | 2022-02-16 14:36 | WPDPFTINT ---
PFT Procedure Performed PFT Procedure Performed Spirometry with Pre/Post Bronchodilator Plethysmography (Lung Vol) Diffusing Cap (DLCO) Flow Vol Loop PFT Interpretation Lung volumes were measured with the body plethysmography method. The diminished lung volumes are indicative of restrictive respiratory disease. Spirometry showed diminished expiratory flow rates and a diminished FEV1 to FVC ratio 56%, indicative of obstructive respiratory disease. Following administration of a bronchodilator there was significant increase in the expiratory flow rates. Lung diffusion capacity is moderately reduced at 64% predicted. The flow volume loop is consistent with obstructive airway disease. In comparison to previous study in 2017, the post bronchodilator FVC is now greater by approximately 0.5 L and the post bronchodilator FEV1 is also greater by approximately 0.3 L. Lung diffusion capacity is essentially unchanged. Impression: Combined restrictive respiratory and obstructive airway disease with significant response to bronchodilators on this testing. Moderately reduced lung diffusion capacity.
== END 2022-02-16 08:40 | disposition home or self-care (01) ==
LOC: ANHPFT 08:41
PROVIDERS: PCP Internal Medicine; Visit Provider Nurse Practitioner Family
DX: R06.09 Other forms of dyspnea (principal); J44.9 Chronic obstructive pulmonary disease, unspecified; R94.2 Abnormal results of pulmonary function studies
CPT/HCPCS: 94060; 94618; 94726; 94729

== ENCOUNTER 2022-03-03 06:40 | Outpatient (CLI) | payer OTHER, SELFPAY ==
--- NOTE | ~2022-03-03 | CT_ITS ---
EXAMINATION: CT lung screening DATE: 03/03/2022 07:17 INDICATION: Personal history of nicotine dependence, current smoker with 50 pack year history TECHNIQUE: Computed tomography (CT) of the chest was performed without intravenous contrast. The dose -length product (DLP) was 251.87 mGy-cm. Automated exposure control and iterative reconstruction tech [employer] were employed. COMPARISON: 03/02/2021 FINDINGS: There is mild emphysema. There is a stable 7 mm nodule of the left lower lobe. A moderate-s ized right pleural effusion is unchanged. Again seen is complete collapse of the right middle lobe. T here is also unchanged partial atelectasis of the right lower lobe. Cardiomegaly is noted. There is c hronic mild mediastinal lymphadenopathy, likely reactive. Calcified pulmonary nodules and calcified l eft hilar lymph nodes are consistent with old granulomatous disease. There is cirrhosis and a large volume of ascites in the visualized upper abdomen. There is mild thoracic spondylosis. IMPRESSION: 1. Lung-RADS category 2S: Benign appearance or behavior. Continue annual screening with noncontrast l ow-dose chest CT in 12 months. 2. Persistent complete atelectasis of the right middle lobe, partial atelectasis of the right lower l obe, moderate size right pleural effusion, cirrhosis, and ascites of the upper abdomen. Reviewed, dictated and finalized at location B. IMPRESSION: 1. Lung-RADS category 2S: Benign appearance or behavior. Continue annual screen ing with noncontrast low-dose chest CT in 12 months. 2. Persistent complete atelectasis of the right middle lobe, partial atelectasi s of the right lower lobe, moderate size right pleural effusion, cirrhosis, and ascites of the upper abdomen.
[2022-03-03 07:24] LABS: Hemoglobin A1C 5.8 % (<5.7)
== END 2022-03-03 06:41 | disposition home or self-care (01) ==
PROVIDERS: PCP Internal Medicine; Visit Provider Nurse Practitioner Family
DX: Z12.2 Encounter for screening for malignant neoplasm of respiratory organs (principal); Z87.891 Personal history of nicotine dependence; E11.22 Type 2 diabetes mellitus with diabetic chronic kidney disease; E03.9 Hypothyroidism, unspecified; E66.01 Morbid (severe) obesity due to excess calories; Z68.39 Body mass index [BMI] 39.0-39.9, adult
CPT/HCPCS: 36415; 71271; 83036

== ENCOUNTER 2022-03-25 06:40 | Outpatient (CLI) | payer OTHER, SELFPAY ==
[2022-03-25 08:09] LABS: Creatinine Urine 149.9 mg/dL; Total Protein Urine Random 10 mg/dL; Ur Ttl Prot Creatinine Ratio 0.07 mg/mg (0-0.20)
[2022-03-25 08:13] LABS: Albumin Level 3.5 g/dL (3.5-5.1); Anion Gap 8 mmol/L (8-16); Blood Urea Nitrogen 19 mg/dL (9-20); Calcium 8.2 mg/dL (8.4-10.2); Carbon Dioxide 21 mmol/L (22-30); Chloride 103 mmol/L (98-107); Estimated Glomerular Filt Rate > 60; Glucose 108 mg/dL (65-110); Phosphorus 3.6 mg/dL (2.5-4.5); Sodium 132 mmol/L (137-145)
[2022-03-25 08:47] LABS: Vitamin D 25 Hydroxy 18.7 ng/mL
[2022-03-25 08:49] LABS: Free T4 Free Thyroxine 1.56 ng/mL (0.78-2.19)
== END 2022-03-25 06:41 | disposition home or self-care (01) ==
PROVIDERS: PCP Internal Medicine; Referring Provider Internal Medicine Nephrology; Visit Provider Nurse Practitioner
DX: E03.9 Hypothyroidism, unspecified (principal); I12.9 Hypertensive chronic kidney disease with stage 1 through stage 4 chronic kidney disease, or unspecified chronic kidney disease; N18.31 Chronic kidney disease, stage 3a; E11.29 Type 2 diabetes mellitus with other diabetic kidney complication; E55.9 Vitamin D deficiency, unspecified
CPT/HCPCS: 36415; 80069; 82306; 82570; 84156; 84439; 84443